=== PATIENT | female | born 1935 | race Caucasian/White ===

== ENCOUNTER 2021-08-21 22:45 | Inpatient (IN) | payer MEDICARE, OTHER ==
[~2021-08-21] VITALS: Ht 165 cm; Wt 94.0 kg
[2021-08-21] MEDS ORDERED: PAROXETINE 10MG10 MG PO (23:57)
[2021-08-21] MEDS ORDERED: AMLODIPINE BESYL5 MG PO (23:57)
[2021-08-21] MEDS ORDERED: LEVOTHYROXINE75 MC1 PO (23:57)
[2021-08-21] MEDS ORDERED: TRIAMCINOLONE 080 GM TOP (23:58)
[2021-08-21] MEDS ORDERED: KLOR-CON M2020 MEQ PO (23:58)
[2021-08-21] MEDS ORDERED: VENTOLIN (2.5 MG/3 M INH (23:59)
--- NOTE | 2021-08-22 01:48 | NUR ---
[employer] AWARE OF MEDS GIVEN PRIOR TO GIVEN SCHEDULE MEDS. [employer] OKAY TO CONTINUE TO GIVE SCHEDULE MEDS
[2021-08-22] MEDS ORDERED: ULTRAM50 MG PO (02:57)
[2021-08-22] MEDS ORDERED: SINGULAIR10 MG PO (02:57)
[2021-08-22] MEDS ORDERED: OMEPRAZOLE 20MG20 MG PO (03:00)
[2021-08-22] MEDS ORDERED: VITAMIN D21250 MCG PO (03:00)
[2021-08-22] MEDS ORDERED: KLOR-CON M 1010 MEQ PO (03:01)
[2021-08-22 06:55] LABS: BASOPHIL 0.2 % (0-2); EOSINOPHIL 0 % (0-7); HCT 34.4 % (37.0-47.0); LYMPHOCYTE 10.1 % (15-48); MCH 30.8 pg (25.0-31.0); MCV 96.4 fL (78.0-100.0); MONOCYTE 7.9 % (0-12); MPV 12.2 fL (6.0-9.5); NEUTROPHIL 81.4 % (41-80); NRBC 0; PLT 199 K/uL (150-400); RBC 3.57 M/uL (4.20-5.40); RDW 13.6 % (11.5-14.0); WBC 11.4 K/uL (4.0-10.5)
[2021-08-22 07:03] LABS: INR 1.1 (0.9-1.2); PROTHROMBIN TIME 13.6 SECONDS (11.8-13.4); PTT 26.9 SECONDS (24.4-34.7)
[2021-08-22 07:19] LABS: BUN/CREAT RATIO (CALC) 23.1 RATIO; CREATININE 1.47 mg/dL (0.51-0.95); POTASSIUM 5.1 mmol/L (3.5-5.1)
--- NOTE | 2021-08-22 09:55 | NUR ---
PT LIVES WITH SPOUSE AND NORMALY IS INDEPENDENT WITH ADL;S SHE DOES HAVE A CANE AND ROLLING WALKER BUT DOES NOT USE THEM; SHE WANTS TO GO TO [facility] FOR [facility] ONCE SHE IS MEDICALLY STABLE; I CALLED AND SPOKE TO HENRY AT [facility] SHE SAID SHE WOULD TAKE THE REFFERALL AND LOOK OVER IT AND CALL ME WITH DETERMINATION; I DID TELL HER IF ALL STAYS ON TRACK THAT PT WOULD BE READY TO TRANSFER ON WEDNESDAY; IF [facility] ACCEPTS THE NURSE CAN CALL REPORT TOO; EXT: [phone] FAX: [phone]
--- NOTE | 2021-08-22 13:46 | NUR ---
PT HAS OFFICALLY BEEN APPROVED. REPORT NUMBER IS IS PREVIOUS NOTE; PLEASE FAX PT/OT NOTES TO [phone]
[2021-08-23 09:06] LABS: BASOPHIL 0.2 % (0-2); EOSINOPHIL 0.1 % (0-7); HCT 29.2 % (37.0-47.0); HGB 9.3 g/dl (12.5-16.0); LYMPHOCYTE 11.8 % (15-48); MCH 31.1 pg (25.0-31.0); MCHC 31.8 g/dL (32.0-36.0); MCV 97.7 fL (78.0-100.0); MONOCYTE 8.9 % (0-12); MPV 12.5 fL (6.0-9.5); NEUTROPHIL 78.7 % (41-80); NRBC 0; PLT 178 K/uL (150-400); RBC 2.99 M/uL (4.20-5.40); RDW 14.1 % (11.5-14.0); WBC 9.9 K/uL (4.0-10.5)
[2021-08-23 09:09] LABS: BUN/CREAT RATIO (CALC) 26.5 RATIO; CREATININE 1.89 mg/dL (0.51-0.95); POTASSIUM 4.7 mmol/L (3.5-5.1)
[2021-08-24 06:24] LABS: BASOPHIL 0.3 % (0-2); EOSINOPHIL 1.6 % (0-7); HCT 25.3 % (37.0-47.0); HGB 8.2 g/dl (12.5-16.0); LYMPHOCYTE 15.3 % (15-48); MCH 31.2 pg (25.0-31.0); MCHC 32.4 g/dL (32.0-36.0); MCV 96.2 fL (78.0-100.0); MONOCYTE 10.6 % (0-12); MPV 11.9 fL (6.0-9.5); NEUTROPHIL 71.9 % (41-80); NRBC 0; PLT 139 K/uL (150-400); RBC 2.63 M/uL (4.20-5.40); RDW 13.8 % (11.5-14.0)
[2021-08-24 07:02] LABS: BUN/CREAT RATIO (CALC) 28.2 RATIO; CREATININE 1.1 mg/dL (0.51-0.95); POTASSIUM 4.5 mmol/L (3.5-5.1)
[2021-08-25 06:25] LABS: BASOPHIL 0.4 % (0-2); EOSINOPHIL 4.2 % (0-7); HCT 26.5 % (37.0-47.0); HGB 8.4 g/dl (12.5-16.0); LYMPHOCYTE 19.9 % (15-48); MCH 30.5 pg (25.0-31.0); MCHC 31.7 g/dL (32.0-36.0); MCV 96.4 fL (78.0-100.0); MONOCYTE 7.4 % (0-12); MPV 11.9 fL (6.0-9.5); NEUTROPHIL 67.7 % (41-80); NRBC 0; PLT 168 K/uL (150-400); RBC 2.75 M/uL (4.20-5.40); RDW 13.8 % (11.5-14.0); WBC 7.1 K/uL (4.0-10.5)
[2021-08-25 06:52] LABS: BUN/CREAT RATIO (CALC) 22.2 RATIO; CREATININE 0.9 mg/dL (0.51-0.95); POTASSIUM 4.2 mmol/L (3.5-5.1)
[2021-08-25] MEDS ORDERED: XARELTO10 MG PO (08:38)
[2021-08-25] MEDS ORDERED: SENOKOT8.6 MG PO (08:38)
[2021-08-25] MEDS ORDERED: MIRALAX17 GM PO (08:38)
[2021-08-25] MEDS ORDERED: OXY-IR 5MG5 MG PO (08:38)
== END 2021-08-25 13:13 | DRG 480 ==
LOC: FMS 22:45
PROVIDERS: Family Medicine; Nurse Practitioner Acute Care; ADMIT Internal Medicine
PROC: B24BZZZ Ultrasonography of Heart with Aorta (ICD-10-PCS; 2021-08-22)
PROC: 0QS706Z Reposition Left Upper Femur with Intramedullary Internal Fixation Device, Open Approach (ICD-10-PCS; principal; 2021-08-23)
PROC: 0PSJXZZ Reposition Left Radius, External Approach (ICD-10-PCS; 2021-08-23)
DX: S72.142A Displaced intertrochanteric fracture of left femur, initial encounter for closed fracture (principal); J96.21 Acute and chronic respiratory failure with hypoxia; S52.615A Nondisplaced fracture of left ulna styloid process, initial encounter for closed fracture; S52.572A Other intraarticular fracture of lower end of left radius, initial encounter for closed fracture; N17.9 Acute kidney failure, unspecified; J98.11 Atelectasis; K86.2 Cyst of pancreas; Z66 Do not resuscitate; W19.XXXA Unspecified fall, initial encounter; Z20.822 Contact with and (suspected) exposure to COVID-19; D64.9 Anemia, unspecified; D69.6 Thrombocytopenia, unspecified; R60.0 Localized edema; M81.0 Age-related osteoporosis without current pathological fracture; E66.9 Obesity, unspecified; E78.5 Hyperlipidemia, unspecified; J44.9 Chronic obstructive pulmonary disease, unspecified; I11.9 Hypertensive heart disease without heart failure; E03.9 Hypothyroidism, unspecified; Z96.651 Presence of right artificial knee joint; M18.12 Unilateral primary osteoarthritis of first carpometacarpal joint, left hand; K44.9 Diaphragmatic hernia without obstruction or gangrene; M40.204 Unspecified kyphosis, thoracic region; M51.34 Other intervertebral disc degeneration, thoracic region; E16.2 Hypoglycemia, unspecified; Z68.34 Body mass index [BMI] 34.0-34.9, adult; Z79.899 Other long term (current) drug therapy; Z87.891 Personal history of nicotine dependence; Z82.49 Family history of ischemic heart disease and other diseases of the circulatory system; Z98.890 Other specified postprocedural states
CPT/HCPCS: 36415; 71045; 73100; 73501; 76000; 80048; 82550; 83036; 85025; 85610; 85730; 93005; 94010; 94640; 94760; 94762; 97162; 97166; 97530; 97530-GP; C1713; J0697; J1170; J1644; J1885; J2250; J2270; J2405; J2704; J2795; J3010; J7030; J7040; J7120